=== PATIENT | female | born 1945 | race Caucasian/White ===

== ENCOUNTER 2016-05-14 11:08 | Day surgery (SDC) | payer BC ==
--- NOTE | ~2016-05-14 | OP ---
Record Of Operation [facility] [address] [place]. [address] NAME: DILAN FRANKS : 45 STATUS : [facility]#: [id number] AGE: 70 ADM/REG DATE : 05/14/16 MR#: [id number] REPORT SERV DATE: 05/14/16 DICTATED BY: SILVA CHOWDARY DATE: 05/14/16 REPORT STATUS : Draft TRANSCRIBED BY: MODL DATE: 05/14/16 DATE OF PROCEDURE: 05/14/2016 PROCEDURE: Bronchoscopy with bronchoalveolar lavage, injection of steroids, transbronchial biopsies, and balloon dilation. 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 PREOPERATIVE DIAGNOSIS: Endobronchial sarcoid. POSTOPERATIVE DIAGNOSIS: Endobronchial sarcoid. SEDATION: Provided by Anesthesia, general anesthesia and airway is protected by an LMA. PROCEDURE NOTE: We began with the procedure with an LMA in place, placed lidocaine over the vocal cords, we were able to intubate past the vocal cords. We then conducted a full airway examination, the right upper lobe has a miniature web that is nonobstructing, no significant change. There was also a web in the right BI. Otherwise, no other endobronchial abnormalities on the right side. Looking at the left, the patient has reformed her web at the 6 o'clock position of the left upper lobe. We conducted a bronchioalveolar lavage of the left upper lobe. The orifice was still open with air moving in and out. After conducting the BAL, we then took the forceps biopsy and attempted to further breakdown the web, there was some bleeding; however, this ceased on its own. No need of epinephrine was noted. We then conducted a balloon dilation of the left upper lobe, we were able to actually dilate past the orifice and go further. We conducted this balloon dilation of size 4 on the Rick catheter and infused fluid through the catheter for 30 seconds x3. At the end, we then used the injection needle and injected 1 mL of 40 mg of Kenalog in the web at the site. Otherwise, there was good hemoptysis control at the end, no further complications were noted. OUTCOME: Successful bronchoscopy for the above-named procedure with no immediate complications. RECOMMENDATIONS: Please follow up microbiological studies, the patient will need a repeat surveillance in around three months. HFQ/FLOR Silva Chowdary MD / [id number] Record Of Operation [address] [facility] [place] [address] NAME: DILAN FRANKS DAVIDSHERLYN : 45 STATUS : [facility] PAT#: [id number] AGE: 70 ADM/REG DATE : 05/14/16 MR#: [id number] REPORT SERV DATE: 05/14/16 DICTATED BY: SILVA CHOWDARY DATE: 05/14/16 REPORT STATUS : Draft TRANSCRIBED BY: FLOR DATE: 05/14/16 CC: MD Amadeo Ingram M.D.
[~2016-05-14 11:08] MED LIST: CRANBERRY400 MG PO; CRANBERRY425 MG; ESTRACE1 MG PO; FOLIC PO; HYDROCHLOROT25 MG PO; KLONO1 PO; LISINOPRIL40 MG PO; MACROBID PO; MTX2.5 PO; NEUR300 PO; NORV5 PO; P20 PO; P5 PO; PRILO PO; PRIN20 PO; PROAIR HFA INH; PROTONIX PO; SYMBICORT 160/41 INH INH; ZOCOR40 PO
[2016-05-14 11:59] LABS: BASOPHILS 0.1 %; BASOPHILS ABSOLUTE 0.01 10/3/uL (0.0-0.16); EOSINOPHILS 3.3 %; EOSINOPHILS ABSOLUTE 0.24 10/3/uL (0.0-0.53); HEMATOCRIT 42.1 % (36.0-48.0); HEMOGLOBIN 14.1 g/dL (12.0-16.0); IMMATURE GRANULOCYTES 0.1 %; IMMATURE GRANULOCYTES ABSOLUTE 0.01 10/3/uL (0.0-0.11); LYMPHOCYTES 18.4 %; LYMPHOCYTES ABSOLUTE 1.35 10/3/uL (0.67-4.30); MEAN CORPUS HGB CONC 33.5 g/dL (32.0-36.0); MEAN CORPUSCULAR HEMOGLOB 29.2 pg (26.0-34.0); MEAN CORPUSCULAR VOLUME 87.2 fL (80-100); MEAN PLATELET VOLUME 9.5 fL (9.2-13.0); MONOCYTES 8.3 %; MONOCYTES ABSOLUTE 0.61 10/3/uL (0.21-1.20); NEUTROPHILS 69.8 %; NEUTROPHILS ABSOLUTE 5.11 10/3/uL (2.02-8.40); PLATELET COUNT 265 10/3/uL (150-400); RBC DISTRIBUTION WIDTH 15.2 % (12.0-16.0); RED CELL COUNT 4.83 10/6/uL (4.0-5.6); WHITE BLOOD CELLS 7.3 10/3/uL (4.5-10.5)
[2016-05-14 12:00] LABS: MANUAL DIFF NO %
[2016-05-14 12:03] LABS: PARTIAL THROMBO TIME 29.7 SEC (22.5-37.2); PROTIME (NOT ORD) 12.8 SEC (12.0-14.5)
[2016-05-14 12:24] LABS: A/G RATIO 0.9 (0.7-1.9); ALBUMIN 3.6 G/DL (3.5-5.0); BUN (BLOOD UREA NITROGEN) 15 MG/DL (6-23); CALCIUM, SERUM 8.8 MG/DL (8.5-10.4); CHLORIDE, SERUM 102 MMOL/L (96-112); CREATININE 1.04 MG/DL (0.55-1.02); GFR AFRICAN AMERICAN 63 ML/MIN (>=60); GFR NON AFRICAN AMERICAN 54 ML/MIN (>=60); GLOBULIN 3.8 G/DL (2.5-4.1); GLUCOSE, SERUM 100 MG/DL (60-99); POTASSIUM, SERUM 4.1 MMOL/L (3.5-5.3); SGOT(AST) 21 U/L (5-40); SGPT(ALT) 26 U/L (5-65); SODIUM, SERUM 141 MMOL/L (135-148); TOTAL BILIRUBIN 0.3 MG/DL (0-1.2); TOTAL PROTEIN 7.4 G/DL (6.0-8.5)
[2016-05-14 12:26] LABS: ALKALINE PHOSPHATASE 97 U/L (45-117); CO2 (CARBON DIOXIDE) 26 MMOL/L (24-34)
[2016-08-19] MEDS ORDERED: PRILOSEC40 MG PO (09:43)
[2016-12-04] MEDS ORDERED: SYN.05 PO (17:03)
== END 2016-05-14 16:09 | disposition home or self-care (01) ==
LOC: DMU 11:08
PROVIDERS: Anesthesiology; Internal Medicine Critical Care Medicine
PROC: 0BBG8ZX Excision of Left Upper Lung Lobe, Via Natural or Artificial Opening Endoscopic, Diagnostic (ICD-10-PCS; 2016-05-14)
PROC: 0B9G8ZX Drainage of Left Upper Lung Lobe, Via Natural or Artificial Opening Endoscopic, Diagnostic (ICD-10-PCS; principal; 2016-05-14 13:00)
PROC: 0B7 Respiratory System, Dilation (ICD-10-PCS; 2016-05-14 13:00)
DX: D86.0 Sarcoidosis of lung (principal); I10 Essential (primary) hypertension; K21.9 Gastro-esophageal reflux disease without esophagitis; E11.9 Type 2 diabetes mellitus without complications; G47.33 Obstructive sleep apnea (adult) (pediatric); J45.909 Unspecified asthma, uncomplicated; E78.00 Pure hypercholesterolemia, unspecified; I44.7 Left bundle-branch block, unspecified; F41.9 Anxiety disorder, unspecified; Z91.041 Radiographic dye allergy status; Z88.8 Allergy status to other drugs, medicaments and biological substances; Z88.2 Allergy status to sulfonamides; Z79.899 Other long term (current) drug therapy; Z90.89 Acquired absence of other organs; Z98.890 Other specified postprocedural states
CPT/HCPCS: 80053; 82962; 85025; 85610; 85730; 87015; 87102; 87107; 87116; 93005; A9270-GY; J2405; J3010; J3301

== ENCOUNTER 2016-08-22 09:12 | Day surgery (SDC) | payer BC ==
--- NOTE | ~2016-08-22 | OP ---
Record Of Operation [address] [place]. [address] NAME: DILAN FRANKS : 45 STATUS : [facility] PAT#: [id number] AGE: 70 ADM/REG DATE : 08/22/16 MR#: [id number] REPORT SERV DATE: 08/22/16 DICTATED BY: SILVA CHOWDARY DATE: 08/22/16 REPORT STATUS : Draft TRANSCRIBED BY: MODL DATE: 08/22/16 DATE OF PROCEDURE: 08/22/2016 PROCEDURE: Bronchoscopy with bronchoalveolar lavage and balloon dilation with instillation of Kenalog. INDICATION FOR PROCEDURE: The patient has endobronchial sarcoid with left upper lobe autoamputation and placement of an artificial orifice through the web and attempting to keep this open for better aeration in the patient's symptoms. PREOPERATIVE DIAGNOSIS: Endobronchial sarcoid, left upper lobe. POSTOPERATIVE DIAGNOSIS: Endobronchial sarcoid, left upper lobe. PROCEDURE NOTE: The patient was brought down to the bronchoscopy suite, using an LMA for airway protection, anesthesia on board providing general anesthesia. We were able to place lidocaine over the vocal cords, we inserted the bronchoscope below these vocal cords and placed lidocaine down the trachea, right mainstem, left mainstem, and left upper lobe. Conducted a tracheobronchial tree examination, for which the patient has a mild right upper lobe web, slight progression of the right BI web, and the left upper lobe has continued orifice opening but thickening of the endobronchial sarcoid with a non-crisp left upper lobe brittanie. We then conducted a bronchoalveolar lavage of the left upper lobe. We then conducted a balloon dilation using a Rick catheter, size 4. We conducted four dilatations with about 45-second per dilation. Afterwards, we switched and instilled 1 mL of Kenalog, which was 40 mg of Kenalog into the left upper lobe using a 25-gauge injection needle. There was some bleeding with the 1st instillation of Kenalog but this stopped bleeding by the end of the procedure. Otherwise, the procedure was completed. OUTCOME: Successful bronchoscopy with airway examination, which shows progression of webs bilaterally but retained opening of the left upper lobe, conducted a balloon dilation and instillation of Kenalog in this site after BAL. HFQ/FLOR Silva Chowdary MD / [id number] CC: MD Amadeo Ingram M.D.
[~2016-08-22 09:12] MED LIST changes: +PRILOSEC40 MG PO
[2016-08-22 09:51] LABS: HEMOGLOBIN 14.2 g/dL (12.0-16.0)
[2016-08-22 09:56] LABS: INTERNATIONAL NORMAL RATI 1.1 UNITS (-); PROTIME (NOT ORD) 14.1 SEC (12.0-14.5)
[2016-08-22 10:05] LABS: ALBUMIN 3.7 G/DL (3.5-5.0); BUN (BLOOD UREA NITROGEN) 17 MG/DL (6-23); CALCIUM, SERUM 9.1 MG/DL (8.5-10.4); CHLORIDE, SERUM 103 MMOL/L (96-112); CREATININE 1.13 MG/DL (0.55-1.02); GFR AFRICAN AMERICAN 57 ML/MIN (>=60); GFR NON AFRICAN AMERICAN 49 ML/MIN (>=60); GLOBULIN 3.7 G/DL (2.5-4.1); GLUCOSE, SERUM 102 MG/DL (60-99); POTASSIUM, SERUM 3.9 MMOL/L (3.5-5.3); SGOT(AST) 37 U/L (5-40); SGPT(ALT) 38 U/L (5-65); SODIUM, SERUM 142 MMOL/L (135-148); TOTAL BILIRUBIN 0.4 MG/DL (0-1.2); TOTAL PROTEIN 7.4 G/DL (6.0-8.5)
[2016-08-22 10:06] LABS: ALKALINE PHOSPHATASE 115 U/L (45-117); CO2 (CARBON DIOXIDE) 31 MMOL/L (24-34)
[2016-12-04] MEDS ORDERED: SYN.05 PO (17:03)
== END 2016-08-22 14:37 | disposition home or self-care (01) ==
LOC: DMU 09:12
PROVIDERS: Internal Medicine Critical Care Medicine
PROC: 0B9G8ZX Drainage of Left Upper Lung Lobe, Via Natural or Artificial Opening Endoscopic, Diagnostic (ICD-10-PCS; principal; 2016-08-22 11:00)
DX: D86.0 Sarcoidosis of lung (principal); I10 Essential (primary) hypertension; E11.9 Type 2 diabetes mellitus without complications; E78.00 Pure hypercholesterolemia, unspecified; J45.909 Unspecified asthma, uncomplicated; G47.33 Obstructive sleep apnea (adult) (pediatric); K21.9 Gastro-esophageal reflux disease without esophagitis; F41.9 Anxiety disorder, unspecified; F32.9 Major depressive disorder, single episode, unspecified; Z91.041 Radiographic dye allergy status; Z88.2 Allergy status to sulfonamides; Z90.89 Acquired absence of other organs; Z90.49 Acquired absence of other specified parts of digestive tract; Z90.710 Acquired absence of both cervix and uterus; Z79.899 Other long term (current) drug therapy; Z98.890 Other specified postprocedural states
CPT/HCPCS: 80053; 82962; 85014; 85018; 85610; 85730; 87015; 87070; 87102; 87116; 87205; 93005; A9270-GY; C1757; J2250; J2405; J3301